=== PATIENT | female | born 1995 | race African-American/Black ===

== ENCOUNTER 2017-09-23 11:18 | Emergency (ER) | payer MEDICAID ==
[~2017-09-23] VITALS: Ht 170.2 cm; Wt 65.8 kg
[2017-09-23 11:26] VITALS: BP 114/86
--- NOTE | 2017-09-23 11:36 | NUR ---
Patient ambulated to bed 4. RN evaluating patient at bedside.
--- NOTE | 2017-09-23 11:38 | NUR ---
PATIENT PRESENTS TO ED WITH c/o persistant productive yellow cough x 2 wks nasal congestion, sinus pain hx---denies rx----none .PER PT SHE SMOKES 3X PER DAY. DENIES N/V/D; SKIN IS PINK/WARM/DRY; AAOX4 WITH EVEN AND STEADY GAIT; LUNGS CLEAR BL; HR EVEN AND REGULAR; PT DENIES ANY FEVER, CP, SOB, OR COUGH AT THIS TIME; PATIENT STATES PAIN OF 0/10 AT THIS TIME; VSS; PATIENT POSITIONED FOR COMFORT; HOB ELEVATED; BEDRAILS UP X2; BED DOWN. ER MD MADE AWARE OF PT STATUS.
--- NOTE | 2017-09-23 11:41 | NUR ---
Dr. Hutchins evaluating patient at bedside.
[2017-09-23 11:59] VITALS: BP 114/86
== END 2017-09-23 11:59 | disposition home or self-care (01) ==
LOC: MED 11:18
DX: R05 Cough (principal); F17.200 Nicotine dependence, unspecified, uncomplicated
CPT/HCPCS: 99283